=== PATIENT | female | born 1995 | race African-American/Black ===

== ENCOUNTER → 2018-10-09 | Outpatient (REF) | payer OTHER ==
[2018-10-09 17:25] LABS: HCG, SERUM QUANTITATIVE 17152 MIU/ML
[2018-10-09 19:43] LABS: CHLAMYDIA DNA AMPLIFICATION NEGATIVE (NEGATIVE); GC DNA AMPLIFICATION NEGATIVE (NEGATIVE)
== END ==
LOC: M SFHCLERA 12:22
DX: N89.8 Other specified noninflammatory disorders of vagina (principal)

== ENCOUNTER 2019-03-26 20:03 | Outpatient (CLI) | payer OTHER ==
[~2019-03-26] VITALS: Ht 160 cm; Wt 84.3 kg
[2019-03-26 20:25] VITALS: BP 124/62
[2019-03-26] MEDS ORDERED: PRENTAB9 PO (20:51)
[2019-03-26 20:54] LABS: APPEARANCE, URINE CLOUDY (CLEAR); BACTERIA, URINE AUTO 1+ (NEGATIVE); BILIRUBIN, URINE AUTO NEGATIVE (NEGATIVE); BLOOD, URINE BLOOD NEGATIVE (NEGATIVE); COLOR, URINE STRAW (YELLOW); GLUCOSE, URINE (UA) AUTO NEGATIVE (NEGATIVE); KETONE, URINE AUTO NEGATIVE (NEGATIVE); LEUKOCYTE ESTERASE, URINE AUTO 3+ (NEGATIVE); NITRITE, URINE AUTO NEGATIVE (NEGATIVE); PROTEIN, URINE AUTO NEGATIVE (NEGATIVE); RBC, URINE AUTO 1 /HPF (0-3); SPECIFIC GRAVITY URINE AUTO 1.001 (1.002-1.035); SQUAMOUS EPITHELIAL CELL UR AU 0 /HPF (0-6); UROBILINOGEN, URINE AUTO 0.2 mg/dL (0.0-2.0); WBC, URINE AUTO 3 /HPF (0-3)
== END 2019-03-26 21:00 | disposition home or self-care (01) ==
LOC: M LDO 20:03
PROVIDERS: ATTEND Obstetrics & Gynecology
DX: O26.893 Other specified pregnancy related conditions, third trimester (principal); R10.30 Lower abdominal pain, unspecified; Z3A.29 29 weeks gestation of pregnancy; O23.43 Unspecified infection of urinary tract in pregnancy, third trimester
CPT/HCPCS: 59025; 81001; 87086; G0378; G0463

== ENCOUNTER → 2019-05-30 | Outpatient (REF) ==
[~2019-05-30] MED LIST: ACET1TAB55 PO; DIBU10OI TOP; IBUP80TA PO; PRENTAB9 PO
== END ==
LOC: M LAB REF 12:10
PROVIDERS: ATTEND Obstetrics & Gynecology
DX: Z34.80 Encounter for supervision of other normal pregnancy, unspecified trimester (principal); Z3A.00 Weeks of gestation of pregnancy not specified

== ENCOUNTER 2019-06-07 00:58 | Inpatient (IN) | payer OTHER ==
[~2019-06-07] VITALS: Ht 160 cm; Wt 86.8 kg
[~2019-06-07 00:58] MED LIST changes: -ACET1TAB55 PO; -DIBU10OI TOP; -IBUP80TA PO
[2019-06-07] MEDS ORDERED: OXYTOCIN 30 UNITS IN 0.9% NaCl 500ML IV BAG (J2590) As Ordered ONE (01:00)
[2019-06-07] MEDS ORDERED: IBUPROFEN 800 MG TAB As Ordered ONE (02:25)
[2019-06-07] MEDS ORDERED: ONDANSETRON 4MG/2ML VIAL (J2405) IV PRN (03:15)
[2019-06-07] MEDS ORDERED: IBUPROFEN 800 MG TAB PO PRN (03:15)
[2019-06-07] MEDS ORDERED: ANUSOL HC CREAM 30GM TOP PRN (03:15)
[2019-06-07] MEDS ORDERED: MEASLES,MUMPS,RUBELLA VACCINE INJ (MMR-II) (90707) SC SCH (03:15)
[2019-06-07] MEDS ORDERED: IBUPROFEN 600 MG TAB PO PRN (03:15)
[2019-06-07] MEDS ORDERED: DOCUSATE SODIUM 100 MG CAP PO PRN (03:15)
[2019-06-07] MEDS ORDERED: OXYTOCIN INJ 10 UNITS/ML VIAL (J2590) IM ONE (03:15)
[2019-06-07] MEDS ORDERED: PERCOCET 5MG/325MG TAB PO PRN (03:15)
[2019-06-07] MEDS ORDERED: ACETAMINOPHEN TAB 650MG DOSE (2X325MG) PO PRN (03:15)
[2019-06-07] MEDS ORDERED: METHYLERGONOVINE MALEATE 0.2 MG TAB PO PRN (03:15)
[2019-06-07] MEDS ORDERED: DIBUCAINE 1% OINTMENT 30GM TOP PRN (03:15)
[2019-06-07] MEDS ORDERED: LIDOCAINE 1% MDV 20ML VIAL As Ordered ONE (03:21)
[2019-06-07 04:03] LABS: HEMATOCRIT 31.2 % (36.0-47.0); HEMOGLOBIN 10.6 g/dl (12.0-15.5); MEAN CORPUSCULAR HEMOGLOBIN 33.4 pg (27.0-33.0); MEAN CORPUSCULAR VOLUME 98.4 fl (80.0-96.0); PLATELET COUNT, AUTOMATED 139 10^3/uL (150-450); RED BLOOD COUNT 3.17 10^6/uL (4.00-5.40); WHITE BLOOD COUNT 12.5 10^3/uL (4.0-10.0)
[2019-06-07 05:00] VITALS: BP 114/53
--- NOTE | 2019-06-07 07:44 | NUR ---
[facility] Progress Note Catie is a 23 y/o G2 now P2002 s/p uncomplicated early this morning after being admitted for active labor. She is currently recovering on the fernandez and reports feeling well this AM and has no complaints. She is ambulating, tolerating a regular diet, has minimal pain, and minimal lochia. She is without issues. She reports that she has not voided since delivery and encouraged increasing oral intake and trying within the next hour. RN directed to contact provider should she be unable to void. Vitals - VSS, afebrile, non tachycardic General - AAOX3, sitting up in bed, NAD, pleasant and conversant Abdomen - Fundus firm at U-2. No fundal tenderness. Lochia-scant rubra Extremities - No edema Ms. Tabor is doing well and is making an appropriate recovery. Likely discharge home tomorrow. Continue routine care. All questions answered.
--- NOTE | 2019-06-07 08:04 | HPE ---
DATE OF ADMISSION: 06/07/2019 CHIEF COMPLAINT: Contractions. HISTORY OF PRESENT ILLNESS: The patient is a 23-year-old (G) 1, para (P)1-0-0-1 at 40 weeks gestation, estimated date of confinement (EDC) 06/07/2019. The patient presented to the delivery room with regular contractions, estimated gestational age (EGA) 40 weeks. course was unremarkable. Negative GBS, maternal blood type O positive. OBSTETRICAL (OB) HISTORY: Significant for one full term vaginal delivery in [facility] without complications. PAST MEDICAL HISTORY: Significant for: 1. History of blood transfusion for anemia in the past. 2. History of syphilis which was treated in the past. 3. Positive herpes simplex virus (HSV) for which she takes Valtrex as needed. Past medical history otherwise unremarkable. PAST SURGICAL HISTORY: Negative. ALLERGIES: QUININE, SOCIAL HISTORY: , speaks Wolof, is an immigrant from [facility] in [place]. She does not smoke, denies alcohol or other substance abuse. CURRENT MEDICATIONS: - vitamins PHYSICAL EXAMINATION: GENERAL: Well-developed, well-nourished female with contractions every 3-5 minutes. VITAL SIGNS: Afebrile, vital signs stable. ABDOMEN: Contractions every five minutes, palpating moderate strong. Estimated weight approximately 7 pounds. Examination reveals the cervix to be a rim, bulging membranes which were ruptured for clear fluid, 100% effaced at +1 station. The heart rate was 150 with moderate beat to beat variability accelerations, occasional variables, category 2. ASSESSMENT: 23-year-old 2, para 1 in active labor. PLAN: The patient is to be admitted, anticipate spontaneous vaginal delivery.
[2019-06-07] MEDS: PRENATAL VITAMINS CHEWABLE TABLET PO SCH (12:49)
[2019-06-07 18:00] VITALS: BP 101/58
[2019-06-07] MEDS: ACETAMINOPHEN 500 MG TAB PO PRN (20:07)
--- NOTE | 2019-06-07 21:08 | DN ---
DATE: 06/07/2019 The patient had a normal spontaneous vaginal delivery without anesthesia over first degree perineal and periurethral laceration. Lacerations were repaired with local anesthesia and #4-0 Vicryl suture. Infant was female vertex delivered left occipitoanterior (KEITH). There was a nuchal cord times one that was easily reduced prior to delivery. The baby was delivered, placed on his mother's abdomen. After the cord stop pulsing, the umbilical cord was doubly clamped, cut, placenta was delivered spontaneously intact, three vessels. Infant was a female, weight was 7 pounds, 9 ounces, scores were 8 and 9. Estimated blood loss was 400 mL, sponge count at the end of the procedure was done and showed 10 sponges. Complications were none, specimens were none.
[2019-06-08] MEDS: ACETAMINOPHEN 500 MG TAB PO PRN (05:39)
[2019-06-08 06:00] VITALS: BP 113/61
--- NOTE | 2019-06-08 07:15 | DS.PDOC ---
Discharge Summary General Date of Admission Jun 07, 2019 at 00:58 Date of Discharge Jun 08, 2019 Discharge Summary HOSPITAL COURSE: Ms. 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 Her course has been unremarkable. On her day of discharge she met all appropriate discharge criteria. She was ambulating, voiding, tolerating a regular diet, and had minimal pain and lochia. DISCHARGE MEDICATIONS: Please see below. ALLERGIES: Please see below. PHYSICAL EXAMINATION ON DISCHARGE: VITAL SIGNS: Please see below. GENERAL: AAOX3, laying in bed, NAD ABDOMINAL EXAMINATION: Fundus firm at U-2. No fundal tenderness EXTREMITIES: No edema PSYCHIATRIC EXAMINATION: Affect appropriate LABORATORY DATA: Please see below. ACTIVITY: Pelvic rest for 6 weeks DIET: Regular DISCHARGE PLAN: Discharge to home or to boarder status DISPOSITION: Discharge to home or to boarder status on 08Jun2019. DISCHARGE INSTRUCTIONS: 1. Pelvic rest for 6 weeks ITEMS TO FOLLOWUP ON ON OUTPATIENT: 1. appointment in 6 weeks. DISCHARGE CONDITION: Stable. TIME SPENT ON DISCHARGE: Greater than 20 minutes. Deejay Wilder DO Vital Signs/I&Os Vital Signs Date Time Temp Pulse Resp B/P (MAP) Pulse Ox O2 Delivery O2 Flow Rate FiO2 06/08/19 06:00 98.5 66 18 113/61 (78) I&O- Last 24 Hours up to 6 AM 06/08/19 05:59 Output Total 500 ml Balance -500 ml Discharge Medications Scheduled No.137/Iron/Folic Acd ( Vitamin Tablet) 1 Each Tablet, 1 TAB PO DAILY, (Reported) Allergies Coded Allergies: quinine (Verified Allergy, Intermediate, 06/07/19) DEEJAY WILDER DO Jun 08, 2019 07:15
[2019-06-08] MEDS ORDERED: DIBU10OI TOP (07:17)
[2019-06-08] MEDS ORDERED: IBUP80TA PO (07:17)
[2019-06-08] MEDS ORDERED: ACET1TAB55 PO (07:17)
[2019-06-08] MEDS: PRENATAL VITAMINS CHEWABLE TABLET PO SCH (07:31)
== END 2019-06-08 17:30 | disposition home or self-care (01) | DRG 807 ==
LOC: M LDI 00:58 → M OBS 07:06
PROVIDERS: ADMIT Obstetrics & Gynecology; ATTEND Obstetrics & Gynecology
PROC: 10E0XZZ Delivery of Products of Conception, External Approach (ICD-10-PCS; principal; 2019-06-07)
PROC: 0HQ9XZZ Repair Perineum Skin, External Approach (ICD-10-PCS; 2019-06-07)
PROC: 0UQMXZZ Repair Vulva, External Approach (ICD-10-PCS; 2019-06-07)
PROC: 10907ZC Drainage of Amniotic Fluid, Therapeutic from Products of Conception, Via Natural or Artificial Opening (ICD-10-PCS; 2019-06-07)
DX: O70.0 First degree perineal laceration during delivery (principal); Z37.0 Single live birth; Z3A.40 40 weeks gestation of pregnancy; O69.81X0 Labor and delivery complicated by cord around neck, without compression, not applicable or unspecified; O71.82 Other specified trauma to perineum and vulva

== ENCOUNTER 2020-10-14 14:55 | Emergency (ER) | payer OTHER ==
[~2020-10-14] VITALS: Ht 162.6 cm; Wt 75.3 kg
[~2020-10-14 14:55] MED LIST changes: +ACET1TAB55 PO; +DIBU10OI TOP; +IBUP80TA PO
[2020-10-14 15:37] LABS: BASO % 0.5 % (0.0-1.0); EOS # 0.1 10^3/uL (0.0-0.5); EOS % 2.1 % (0.0-3.0); HEMATOCRIT 33.8 % (36.0-47.0); HEMOGLOBIN 11.1 g/dl (12.0-15.5); LYMPH # 2.3 10^3/uL (1.5-5.0); LYMPH % 34.7 % (24.0-44.0); MEAN CORPUSCULAR HEMOGLOBIN 31.4 pg (27.0-33.0); MEAN CORPUSCULAR HGB CONC 32.8 g/dl (32.0-36.5); MEAN CORPUSCULAR VOLUME 95.5 fl (80.0-96.0); MONO # 0.4 10^3/uL (0.0-0.8); MONO % 6.6 % (0.0-5.0); NEUTROPHILS # 3.7 10^3/uL (1.5-8.5); NEUTROPHILS % 55.9 % (36.0-66.0); PLATELET COUNT, AUTOMATED 218 10^3/uL (150-450); RED BLOOD COUNT 3.54 10^6/uL (4.00-5.40); WHITE BLOOD COUNT 6.5 10^3/uL (4.0-10.0)
[2020-10-14 16:59] VITALS: BP 109/55
--- NOTE | 2020-10-14 17:09 | REPVR ---
PROCEDURE INFORMATION: Exam: US First Trimester, Transabdominal and US , Transvaginal Exam date and time: 10/14/2020 4:26 PM Age: 25 years old Clinical indication: Pain; Other: Vag bleeding; Gestational age or lmp: 4wks; ; Additional info: spotting TECHNIQUE: Imaging protocol: Real-time transabdominal obstetrical ultrasound of the maternal pelvis and a first trimester , less than 14 weeks 0 days, with image documentation. Transvaginal imaging was used for better evaluation of the fetus, adnexa, and/or cervix. COMPARISON: No relevant prior studies available. FINDINGS: Gestation: No gestational sac demonstrated. Embryonic/ heart rate: Not applicable Placenta: Unremarkable. No subchorionic bleed. Amniotic fluid: Amniotic fluid is normal for gestational age. BIOMETRY: Gestational age (AUA): Gestational age based on LMP of 05/16/2020 is just over 4 weeks. MATERNAL: Uterus: Uterus measures 7.1 x 5 x 5.9 cm. Mixed hypo and hyperechoic focus in the posterior aspect of the uterus measures 2 x 1.2 x 2.3 cm consistent with a myoma. Endometrial echo complex measures 1.6 mm. Cervix: Unremarkable. Right adnexa: Hypoechoic solid-appearing focus in the right ovary measuring approximately 1.2 cm in diameter may represent a corpus luteum. Left adnexa: Unremarkable. Intraperitoneal space: No intraperitoneal free fluid. IMPRESSION: 1. Empty uterus in a patient who is approximately 4 weeks gestational age based on LMP. Findings may indicate very early IUP prior to visualization of a gestational sac or fetus. Correlation with serial beta-hCG levels and follow ultrasound recommended in order to exclude ectopic verses very early or early failure. 2. Posterior myoma. Electronically signed by: Bakari Grimm On 10/14/2020 17:09:42 PM
== END 2020-10-14 17:33 | disposition home or self-care (01) ==
LOC: M ED 14:55
DX: O20.0 Threatened abortion (principal); Z88.1 Allergy status to other antibiotic agents; Z3A.01 Less than 8 weeks gestation of pregnancy

== ENCOUNTER → 2020-10-17 | Outpatient (CLI) | payer OTHER | LOC: M LAB 13:00 | PROVIDERS: ATTEND Nurse Practitioner Family | DX: Z32.00 Encounter for pregnancy test, result unknown (principal) ==